=== PATIENT | female | born 1960 | race Two or more races ===

== ENCOUNTER 2025-07-09 13:24 | Emergency (ER) | payer OTHER ==
[~2025-07-09] VITALS: Ht 154.9 cm; Wt 46.3 kg
[2025-07-09] MEDS ORDERED: KETOROLAC TROMETHAMINE 60 MG VIAL IM ONE ×2 (15:15→15:23)
[2025-07-09] MEDS ORDERED: NORFLEX100MG PO (16:10)
== END 2025-07-09 16:38 | disposition home or self-care (01) ==
LOC: ER 13:25
DX: M54.59 Other low back pain (principal)